=== PATIENT | female | born 1935 | race Caucasian/White ===

== ENCOUNTER 2021-06-23 09:48 | Emergency (ER) | payer MEDICARE, MEDICAID, SELFPAY ==
[2021-06-23 10:17] VITALS: BP 134/63; PULSE 84; RESP 16; TEMP 36.9; BMI 29.1
== END 2021-06-23 11:48 | disposition left against medical advice (07) ==
PROVIDERS: Emergency Provider Emergency Medicine; PCP Nurse Practitioner Gerontology
CPT/HCPCS: 99281